=== PATIENT | female | born 1965 | race Caucasian/White ===

== ENCOUNTER 2016-12-31 21:03 | Emergency (ER) | payer OTHER | END 2016-12-31 23:35 | disposition home or self-care (01) | LOC: FER 21:03 | DX: S63.91XA Sprain of unspecified part of right wrist and hand, initial encounter (principal); R20.0 Anesthesia of skin; F17.200 Nicotine dependence, unspecified, uncomplicated; W19.XXXA Unspecified fall, initial encounter | CPT/HCPCS: 73130; 99283 ==